=== PATIENT | male | born 1950 | race Caucasian/White ===

== ENCOUNTER → 2019-10-11 10:48 | Outpatient (CLI) | payer BC, SELFPAY ==
[2019-10-11 11:00] LABS: Adenovirus F 40/41, stool Not Detected (NotDetected); Astrovirus Not Detected (NotDetected); Clostridium Difficile A/B, PCR Not Detected (NotDetected); Cryptosporidium Not Detected (NotDetected); Cyclospora Cayetanesis Not Detected (NotDetected); Entamoeba histolytica Not Detected (NotDetected); Enteroaggregative E coli Not Detected (NotDetected); Enteropathogenic E coli Not Detected (NotDetected); Enterotoxigenic E coli Not Detected (NotDetected); Giardia lamblia Not Detected (NotDetected); Norovirus Not Detected (NotDetected); Plesimonas Shigalloides, PCR Not Detected (NotDetected); Rotavirus A Not Detected (NotDetected); Salmonella, PCR Not Detected (NotDetected); Sapovirus Not Detected (NotDetected); Shiga-like toxin E coli Not Detected (NotDetected); Shigella Enterovasive E coli Not Detected (NotDetected); Vibrio Cholerae Not Detected (NotDetected); Vibrio, PCR Not Detected (NotDetected); Yersinia Entercolitica, PCR Not Detected (NotDetected)
[2019-10-11 17:03] LABS: Campylobacter Detected (NotDetected)
[2019-10-12 13:28] LABS: Covid-19 Nasal PCR Sendout Lex Not Detected
== END ==
PROVIDERS: Visit Provider Nurse Practitioner Family
DX: Z03.818 Encounter for observation for suspected exposure to other biological agents ruled out (principal); R19.7 Diarrhea, unspecified; A04.5 Campylobacter enteritis
CPT/HCPCS: 87507; U0004

== ENCOUNTER 2022-11-12 14:02 | Emergency (ER) | payer MEDICARE, SELFPAY ==
[2022-11-12] VITALS (7 sets, daily range): BP systolic 125–150; BP diastolic 79–89; PULSE 94–117; RESP 17–20; TEMP 36.7–36.8; O2SAT 97–98; BMI 29.5
--- NOTE | 2022-11-12 14:23 | PC.NURSE ---
DR AVENDANO AT BEDSIDE
--- NOTE | 2022-11-12 14:32 | CT_ITS ---
PROCEDURE INFORMATION: Exam: CT Abdomen And Pelvis With Contrast Exam date and time: 11/12/2022 3:49 PM Age: 72 years old Clinical indication: Other: Hematuria; Additional info: Painless hematuria, concern for malignancy TECHNIQUE: Imaging protocol: Computed tomography of the abdomen and pelvis with contrast. Radiation optimization: All CT scans at this facility use at least one of these dose optimization techniques: automated exposure control; mA and/or kV adjustment per patient size (includes targeted exams where dose is matched to clinical indication); or iterative reconstruction. Contrast material: ISOVUE; Contrast volume: 75 ml; Contrast route: IV; REPORTING DATA: Count of CT and Cardiac NM exams in prior 12 months: This patient has received 0 known CTs and 0 known cardiac nuclear medicine studies in the 12 months prior to the current study. COMPARISON: No relevant prior studies available. FINDINGS: Lungs: Minor atelectatic changes left lung base otherwise lung zendejas are clear. Liver: Diffuse fatty infiltration of the liver which is otherwise unremarkable. Gallbladder and bile ducts: Normal. No calcified stones. No ductal dilation. Pancreas: Normal. No ductal dilation. Spleen: Normal. No splenomegaly. Adrenal glands: Normal. No mass. Kidneys and ureters: Kidneys are mildly malrotated but otherwise unremarkable. No calculi or obstructive hydronephrosis. Stomach and bowel: Scattered diverticuli large bowel without evidence of acute diverticulitis. Appendix: No evidence of appendicitis. Intraperitoneal space: Unremarkable. No free air. No significant fluid collection. Vasculature: Unremarkable. No abdominal aortic aneurysm. Lymph nodes: Unremarkable. No enlarged lymph nodes. Urinary bladder: Mild diffuse bladder wall thickening with small bladder diverticulum that may be secondary to chronic bladder outlet obstruction syndrome. Reproductive: Prostate gland is mildly enlarged. Bones/joints: Mild degenerative changes lumbar spine. No acute bony abnormalities. Soft tissues: Unremarkable. IMPRESSION: 1. Mild prostate enlargement with mild accompanying diffuse bladder wall thickening that may be secondary to chronic bladder outlet obstruction. 2. 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 3. Diffuse fatty infiltration of liver.
--- NOTE | 2022-11-12 14:33 | HMH.EDGENADL ---
Discharge Plan Disposition Patient Disposition: Home, Self-Care Condition: Good Prescriptions Prescriptions: New levofloxacin 750 mg tablet 750 mg PO DAILY 7 Days Qty: 7 0RF No Action lisinopril 10 mg tablet 10 mg PO DAILY Referrals Follow up/Referrals: Ivelisse Nevarez MD [Primary Care Provider] - See instructions Activity Restrictions/Add. Instructions Additional Instructions/Restrictions: You were evaluated in the emergency department today. Please vegetable picker your prescription for antibiotics and take the full course as prescribed. Follow-up with your primary care provider over the next 3 days for reassessment. It is important that she get close follow-up with urology. They can further evaluate your prostate and bladder issues. Return to the emergency department for any new or worsening symptoms, such as fever, inability to tolerate oral intake without vomiting, inability to urinate, increasing pain, or other concerns. Clinical Impressions Clinical Impression: Painless hematuria, Cystitis, Enlarged prostate Instructions Patient Instructions: DI for Urinary Tract Infection (UTI) Discharge ED Provider: Romy Borges General Adult HPI <Tommie Melara MD - Last Filed: 11/12/22 14:36> General Chief complaint: Urogenital-Male Stated complaint: passing blood in urine Time Seen by Provider: 11/12/22 14:22 Mode of Arrival: Ambulatory Source of Information: Patient Limitations: No Limitations Description of Symptoms (Recalled from ER Triage Doc. by RN): PT C/O BLOOD IN URINE THAT BEGAN LAST NIGHT. REPORTS FREQUENCY, NO PAIN, FEVER OR CHILLS History of Present Illness HPI narrative: 72-year-old here with painless hematuria. States he is only on aspirin not on any anticoagulants or other antiplatelet agents. Denies any significant pain fevers chills or any other symptoms. Had something similar in the past where he did have some pain associated with it and was told he had a urinary tract infection and improved. Patient denies any history of any cancer. He is only on lisinopril for hypertension. States earlier today he had some difficult time passing his urine but once a clot passed he has had no difficulty since around noon today he still able to urinate at this point. No significant suprapubic abdominal distention or tenderness at the moment from historical standpoint. Related Data Home Medications Medication Instructions Recorded Confirmed lisinopril 10 mg tablet 10 mg PO DAILY High Blood Pressure 11/12/22 11/12/22 Previous Rx's Medication Instructions Recorded levofloxacin 750 mg tablet 750 mg PO DAILY 7 days #7 tabs 11/12/22 Allergies Allergy/AdvReac Type Severity Reaction Status Date / Time No Known Allergies Allergy Verified 11/12/22 14:12 PFS <Tommie Melara MD - Last Filed: 11/12/22 14:36> PFS Disclaimer: The information contained in this section may have been updated after the patient was seen, as this information can be updated by other users. Medical History (Updated 11/12/22 @ 17:13 by Romy Borges DO) H/O myasthenia gravis Hypertension Surgical History Hx of tonsillectomy Family History Other No significant family history Social History Smoking Status: Former smoker alcohol intake: never current occupational status: employed Travel in the last 8 weeks: None <Tommie Melara MD - Last Filed: 11/12/22 14:36> ROS Obtained: Yes All systems reviewed & no additional complaints except as documented Physical Exam <Tommie Melara MD - Last Filed: 11/12/22 14:36> General General appearance: alert and in no apparent distress Respiratory Respiratory exam: Present normal lung sounds bilaterally; Absent respiratory distress Cardiovascular Cardiovascular exam: Present regular rate; Absent tac
[2022-11-12 15:00] LABS: Microscopic, Urine URINE MICROSCOPIC (MICROSCOPIC)
[2022-11-12 15:04] LABS: Appearance,Urine CLOUDY (Clear); Blood, Urine 3+ (Negative); Color,Urine RED (Yellow); Glucose,Urine (UA) Negative (Negative); Ketones,Urine TRACE (Negative); Leukocyte Esterase,Urine 2+ (Negative); Nitrate,Urine POSITIVE (Negative); PH,Urine 6.5 (5.0-8.5); Protein,Urine 3+ (Negative); Specific Gravity, Urine 1.025 (1.005-1.030)
[2022-11-12 15:07] LABS: Bilirubin,Urine 3+ (Negative)
[2022-11-12 15:20] LABS: Bacteria,Urine 2+ /lpf; WBC,Urine TNTC #/hpf (0-3)
[2022-11-12 15:25] LABS: Chloride 101 mmol/L (98-107); Potassium 4.7 mmoL/L (3.5-5.1); Sodium 140 mmol/L (136-145)
[2022-11-12 15:28] LABS: Alanine Aminotransferase 34 U/L (12-78); Albumin Level 4.6 g/dl (3.5-5.0); Albumin/Globulin Ratio 1.4 (1.1-1.8); Alkaline Phosphatase 133 U/L (38-126); Anion Gap 15.7 mEq/L (5-15); Aspartate Amino Transferase 38 U/L (17-59); Basophils % 0.3 % (0.1-2.0); Bilirubin,Total 1.2 mg/dl (0.2-1.3); Blood Urea Nitrogen 23 mg/dl (9-20); Carbon Dioxide 28 mmol/L (22.0-30.0); Creatinine Clearance Estimated 91 mL/min (50-200); Eosinophils # 0.2 K/mm3 (0.0-0.4); Eosinophils % 1.2 % (0.1-12.0); Estimated Glomerular Filt Rate 73 ml/min (>60); GFR (African American) 89 ML/MIN (>60); Globulin 3.3 g/dL (1.3-3.2); Hematocrit 44.4 % (42.0-52.0); Hemoglobin 14.3 g/dL (14.1-18.0); Lymphocytes # 1.2 K/mm3 (0.7-4.5); Lymphocytes % 6.8 % (10-50); Mean Corpuscular HGB Conc 32.3 g/dL (31.8-35.4); Mean Corpuscular Hemoglobin 30.6 pg (27.0-31.2); Mean Corpuscular Volume 94.7 fl (80-94); Mean Platelet Volume 8.2 fl (7.4-10.4); Monocytes # 0.9 K/mm3 (0.1-1.0); Monocytes % 5.1 % (1.7-9.3); Neutrophils # 15.3 K/mm3 (1.8-7.8); Neutrophils % 86.6 % (37.0-80.0); Platelet Count 340 K/mm3 (142-424); Red Blood Count 4.69 M/mm3 (4.60-6.20); Red Cell Distribution Width 13.7 % (11.5-17.5); Total Protein,Serum 7.9 g/dl (6.3-8.2); White Blood Count 17.6 K/mm3 (4.8-10.8)
[2022-11-12 15:29] LABS: Glucose 101 mg/dl (74-100)
[2022-11-12 15:30] LABS: MANUAL DIFFERENTIAL MANUAL DIFFERENTIAL (MANUAL DIFF)
[2022-11-12 15:35] LABS: Activated Partial Thrombo Time 26.4 seconds (22.8-30.6); INR 0.97 (0.9-1.1); Prothrombin Time 10.5 seconds (10.1-12.5)
[2022-11-12 16:11] LABS: Lymphocytes % 10 % (10-50); Monocytes % 4 % (2-9); Neutrophils % 86 % (42-76); Platelet Estimate Normal; RBC Morphology Normal; Total Cells Counted 100
--- NOTE | 2022-11-12 16:32 | PC.NURSE ---
ROUNDED ON PT, UPDATED AT THIS TIME
== END 2022-11-12 17:26 | disposition home or self-care (01) ==
PROVIDERS: Student in an Organized Health Care Education/Training Program; Emergency Provider Emergency Medicine; PCP Family Medicine
DX: N30.01 Acute cystitis with hematuria (principal); N40.1 Benign prostatic hyperplasia with lower urinary tract symptoms; G70.00 Myasthenia gravis without (acute) exacerbation; I10 Essential (primary) hypertension; Z79.82 Long term (current) use of aspirin
CPT/HCPCS: 74177; 80053; 81001; 85007; 85025; 85610; 85730; 87086; 87088; 87186; 99285; Q9967

== ENCOUNTER 2022-11-27 08:05 | Emergency (ER) | payer MEDICARE, SELFPAY ==
[2022-11-27] VITALS (15 sets, daily range): BP systolic 114–169; BP diastolic 66–93; PULSE 76–115; RESP 18–19; TEMP 36.4–36.7; O2SAT 92–98; BMI 27.1
--- NOTE | 2022-11-27 08:10 | PC.NURSE ---
dr frederick at bedside
--- NOTE | 2022-11-27 08:13 | PC.NURSE ---
Dr. Olivarez at BS for pt eval
--- NOTE | 2022-11-27 08:21 | US_ITS ---
PROCEDURE INFORMATION: Exam: US Scrotum Exam date and time: 11/27/2022 8:50 AM Age: 72 years old Clinical indication: Scrotum pain; Additional info: Concern L torsion. HX of recent UTI TECHNIQUE: Imaging protocol: Real-time ultrasound of the scrotum and contents with color Doppler and image documentation. COMPARISON: CT ABDOMEN PELVIS W CON 11/12/2022 3:49 PM FINDINGS: Right testicle: Normal. No mass. No torsion. Normal vascular flow. Measures 4.0 x 2.3 cm Left testicle: Normal. No mass. No torsion. Normal vascular flow. Measures 4.9 x 3.4 x 3.3 cm. Epididymides: Increased vascularity of both epididymides compatible with epididymitis. Scrotum/soft tissues: Diffusely edematous scrotum. Small hydroceles bilaterally. Right-sided varicocele. IMPRESSION: 1. Normal testicles. 2. Epididymitis bilaterally. 3. Right-sided varicocele. 4. Small hydroceles bilaterally. 5. Diffusely edematous scrotum.
--- NOTE | 2022-11-27 08:21 | PC.NURSE ---
notified rad staff of u/s order for r/t torsion
--- NOTE | 2022-11-27 08:23 | HMH.EDGENADL ---
Discharge Plan Disposition Patient Disposition: Admitted Chief Complaint: Urogenital-Male Prescriptions Prescriptions: No Action lisinopril 10 mg tablet 10 mg PO DAILY Clinical Impressions Clinical Impression: Sepsis, Bilateral epididymitis, Enterococcus UTI Discharge ED Provider: Hakeem Olivarez General Adult HPI General Chief complaint: Urogenital-Male Stated complaint: male area swollen Time Seen by Provider: 11/27/22 08:11 Mode of Arrival: Ambulatory Source of Information: Patient Limitations: No Limitations Description of Symptoms (Recalled from ER Triage Doc. by RN): PT C/O BILATERAL TESTICLE SWELLING THAT STARED ON MONDAY. PT RECENTLY TREATED FOR UTI WITH ABX History of Present Illness HPI narrative: Patient is a 72-year-old male with no pertinent chronic past medical history who presents to the emergency department for evaluation of testicular pain. Onset was acute, occurring Monday, waking him from sleep, left-sided, testicular radiating into his inguinal area. Symptoms have worsened causing her to present here for continued evaluation due to severe pain. Per patient he was recently diagnosed with prostatitis a couple weeks ago with blood in his urine and was initially given a course of Levaquin which was switched to Bactrim due to his history of myasthenia. Patient did not complete full course of Bactrim. It was switched to nitrofurantoin for which urinary symptoms cleared completely prior to this episode. Last bowel movement yesterday, normal. Patient has had episodes of vomiting and nausea. No other acute complaints at this time. Per chart review patient presented to the ER in 11/12 and underwent work-up where CT found mild prostate enlargement with diffuse bladder wall thickening, urinalysis was consistent with UTI, urine culture has since grown Enterococcus that was pansensitive. Related Data Home Medications Medication Instructions Recorded Confirmed lisinopril 10 mg tablet 10 mg PO DAILY High Blood Pressure 11/12/22 11/27/22 Allergies Allergy/AdvReac Type Severity Reaction Status Date / Time No Known Allergies Allergy Verified 11/12/22 14:12 [facility] Disclaimer: The information contained in this section may have been updated after the patient was seen, as this information can be updated by other users. Medical History (Updated 11/27/22 @ 10:39 by Hakeem Olivarez MD) H/O myasthenia gravis Hypertension Surgical History Hx of tonsillectomy Family History Other No significant family history Social History Smoking Status: Former smoker alcohol intake: never current occupational status: employed Travel in the last 8 weeks: None ROS Obtained: Yes Systems reviewed as appropriate & no additional complaints except as documented Physical Exam General General appearance: alert and in distress Head Head exam: atraumatic and normocephalic Eye Eye exam: Present PERRL and EOMI ENT ENT exam: Present mucous membranes moist Neck Neck exam: Present normal inspection Chest Chest inspection: Present normal inspection and symmetric chest wall rise Respiratory Respiratory exam: Present normal lung sounds bilaterally; Absent respiratory distress Cardiovascular Cardiovascular exam: Present normal rhythm, tachycardia and other (Capillary refill less than 2 seconds) Abdominal Exam Abdominal exam: Present soft and tenderness (Low left inguinal tenderness, no tenderness in any of the abdominal quadrants); Absent guarding or rigidity exam: Present other (Erythematous scrotum, normal right testicle that is nontender to palpation, enlarged high-riding tense significantly tender left testicle. No crepitus.) Extremities Exam Extremities exam: Present normal inspection Neurological Exam Neurological exam: Presen
[2022-11-27 08:36] LABS: Microscopic, Urine URINE MICROSCOPIC (MICROSCOPIC)
[2022-11-27 08:38] LABS: Appearance,Urine CLEAR (Clear); Bilirubin,Urine Negative (Negative); Blood, Urine 2+ (Negative); Color,Urine YELLOW (Yellow); Glucose,Urine (UA) Negative (Negative); Ketones,Urine TRACE (Negative); Leukocyte Esterase,Urine 2+ (Negative); Nitrate,Urine POSITIVE (Negative); Protein,Urine 1+ (Negative); Specific Gravity, Urine 1.025 (1.005-1.030); Urobilinogen,Urine 0.2 EU/dl (0.2)
[2022-11-27 08:40] LABS: Basophils % 0.1 % (0.1-2.0); Eosinophils # 0.1 K/mm3 (0.0-0.4); Eosinophils % 0.7 % (0.1-12.0); Hematocrit 40.4 % (42.0-52.0); Hemoglobin 13.1 g/dL (14.1-18.0); Lymphocytes # 0.3 K/mm3 (0.7-4.5); Lymphocytes % 1.7 % (10-50); Mean Corpuscular HGB Conc 32.3 g/dL (31.8-35.4); Mean Corpuscular Hemoglobin 30.1 pg (27.0-31.2); Mean Corpuscular Volume 93.1 fl (80-94); Mean Platelet Volume 7.9 fl (7.4-10.4); Monocytes # 0.7 K/mm3 (0.1-1.0); Monocytes % 3.6 % (1.7-9.3); Neutrophils # 17.3 K/mm3 (1.8-7.8); Neutrophils % 93.9 % (37.0-80.0); Platelet Count 270 K/mm3 (142-424); Red Blood Count 4.34 M/mm3 (4.60-6.20); Red Cell Distribution Width 13.7 % (11.5-17.5); White Blood Count 18.4 K/mm3 (4.8-10.8)
[2022-11-27 08:44] LABS: MANUAL DIFFERENTIAL MANUAL DIFFERENTIAL (MANUAL DIFF)
--- NOTE | 2022-11-27 08:45 | ECG_ITS ---
APPROVED REPORT Exam: Resting ECG HR:101 bpm ECG Measurements Heart Rate 101 AXES WI 152 P 65 QRSd 102 QRS -4 QT 339 T 53 QTc 397 Conclusion SINUS TACHYCARDIA ABNORMAL RHYTHM ECG UNCONFIRMED REPORT Electronically signed by : Tommy Mcmahan MD 11/29/2022 17:19:48
--- NOTE | 2022-11-27 08:49 | PC.NURSE ---
PT TO US AT THIS TIME
--- NOTE | 2022-11-27 08:49 | PC.NURSE ---
Pt gone to RAD for u/s via wheelchair
[2022-11-27 08:50] LABS: Alanine Aminotransferase 31 U/L (12-78); Albumin Level 3.9 g/dl (3.5-5.0); Albumin/Globulin Ratio 1.2 (1.1-1.8); Alkaline Phosphatase 123 U/L (38-126); Anion Gap 14.1 mEq/L (5-15); Aspartate Amino Transferase 33 U/L (17-59); Bilirubin,Total 1.8 mg/dl (0.2-1.3); Blood Urea Nitrogen 23 mg/dl (9-20); Carbon Dioxide 24 mmol/L (22.0-30.0); Chloride 101 mmol/L (98-107); Creatinine Clearance Estimated 76 mL/min (50-200); Estimated Glomerular Filt Rate 66 ml/min (>60); GFR (African American) 80 ML/MIN (>60); Globulin 3.3 g/dL (1.3-3.2); Glucose 140 mg/dl (74-100); Potassium 4.1 mmoL/L (3.5-5.1); Sodium 135 mmol/L (136-145); Total Protein,Serum 7.2 g/dl (6.3-8.2)
[2022-11-27 08:53] LABS: Bacteria,Urine 3+ /lpf; Squamous Epithelial Cell,Urine Occasional #/hpf (0-5); WBC,Urine 20-50 #/hpf (0-3)
[2022-11-27 08:55] LABS: C-Reactive Protein 113.5 mg/L (0-4); Lymphocytes % 4 % (10-50); Monocytes % 1 % (2-9); Neutrophils % 95 % (42-76); Platelet Estimate Normal; RBC Morphology Normal; Total Cells Counted 100
--- NOTE | 2022-11-27 09:18 | PC.NURSE ---
Pt returned from RAD
--- NOTE | 2022-11-27 09:21 | CT_ITS ---
PROCEDURE INFORMATION: Exam: CT Abdomen And Pelvis With Contrast Exam date and time: 11/27/2022 9:43 AM Age: 72 years old Clinical indication: Fever and mass, lump, or swelling; Other: Scrotum; Patient HX: Recurring UTI, fever, pain , swelling; Additional info: Reported severe scrotal infection US, low abd pain TECHNIQUE: Imaging protocol: Computed tomography of the abdomen and pelvis with contrast. Radiation optimization: All CT scans at this facility use at least one of these dose optimization techniques: automated exposure control; mA and/or kV adjustment per patient size (includes targeted exams where dose is matched to clinical indication); or iterative reconstruction. Contrast material: ISOVUE; Contrast volume: 75 ml; Contrast route: IV; REPORTING DATA: Count of CT and Cardiac NM exams in prior 12 months: This patient has received [address] and 0 known cardiac nuclear medicine studies in the 12 months prior to the current study. COMPARISON: CT ABDOMEN PELVIS W CON 11/12/2022 3:49 PM FINDINGS: Diaphragm: Small hiatal hernia. Liver: Fatty infiltration of the liver. Gallbladder and bile ducts: Normal. No calcified stones. No ductal dilation. Pancreas: Normal. No ductal dilation. Spleen: Normal. No splenomegaly. Adrenal glands: Normal. No mass. Kidneys and ureters: Stable perinephric stranding, may relate to medical renal disease. No findings to suggest pyelonephritis. No hydronephrosis. Stomach and bowel: Colonic diverticulosis without CT evidence of diverticulitis. Appendix: No evidence of appendicitis. Intraperitoneal space: Unremarkable. No free air. No significant fluid collection. Vasculature: Unremarkable. No abdominal aortic aneurysm. Lymph nodes: Unremarkable. No enlarged lymph nodes. Urinary bladder: Stable mild wall thickening within the posterior bladder. Multiple small bladder diverticula evident. Reproductive: Diffuse scrotal edema as seen on earlier ultrasound. Stable mild enlargement of the prostate gland. Bones/joints: Unremarkable. No acute fracture. Soft tissues: No CT evidence of necrotizing fasciitis. IMPRESSION: 1. Diffuse scrotal edema as seen on earlier ultrasound. 2. No CT evidence of necrotizing fasciitis. 3. Stable mild wall thickening within the posterior bladder. Multiple small bladder diverticula evident. 4. Stable perinephric stranding, may relate to medical renal disease. No findings to suggest pyelonephritis.
--- NOTE | 2022-11-27 09:21 | PC.NURSE ---
PT RETURNED FROM US
--- NOTE | 2022-11-27 09:27 | PC.NURSE ---
Dr. Olivarez at to speak with pt about POC
[2022-11-27 09:29] LABS: Erythrocyte Sedimentation Rate 16 mm/hr (0-20)
--- NOTE | 2022-11-27 09:29 | PC.NURSE ---
PT TO CT AT THIS TIME
--- NOTE | 2022-11-27 09:47 | PC.NURSE ---
Pt returned from RAD
--- NOTE | 2022-11-27 10:20 | PC.NURSE ---
ROUNDED ON PT, AT BEDSIDE. DENIES NEEDS AT THIS TIME. CALL LIGHT WITHIN REACH
--- NOTE | 2022-11-27 10:23 | PC.NURSE ---
DR NOWAK SPEAKING WITH DR JAY FOR ADMISSION
--- NOTE | 2022-11-27 10:35 | PC.NURSE ---
notified [facility] supervisor of admission
--- NOTE | 2022-11-27 11:04 | PC.NURSE ---
MULTIPLE ATTEMPTS TO PLACE F/C. UNABLE TO PLACE 16F, 10F AND 5F CATHETERS.
--- NOTE | 2022-11-27 11:10 | PC.NURSE ---
pt sitting up on side of the bed attempting to use the urinal
--- NOTE | 2022-11-27 11:16 | PC.NURSE ---
APPROX 100ML VOID GREATER THAN 350ML POST-VOID RESIDUAL
--- NOTE | 2022-11-27 11:18 | PC.NURSE ---
contacting [facility] per ER request
--- NOTE | 2022-11-27 11:23 | PC.NURSE ---
transfer center at [facility] will contact Dr. Green from urology and will call us back to speaking with REILLY PINEDA
--- NOTE | 2022-11-27 11:32 | PC.NURSE ---
DR NOWAK AT BEDSIDE TO UPDATE PT
--- NOTE | 2022-11-27 11:33 | PC.NURSE ---
DR. NOWAK SPEAKING WITH DR. JOHNSON FOR UROLOGY
--- NOTE | 2022-11-27 11:35 | PC.NURSE ---
call and updated pts about possible transfer.
--- NOTE | 2022-11-27 11:46 | PC.NURSE ---
DR NOWAK SPEAKING WITH [facility]
--- NOTE | 2022-11-27 11:49 | PC.NURSE ---
PT ACCEPTED BY DR. LEI
--- NOTE | 2022-11-27 12:14 | PC.NURSE ---
PT UPDATED AT THIS TIME, NO NEEDS AT THIS TIME. CALL LIGHT WITHIN REACH
--- NOTE | 2022-11-27 12:15 | PC.NURSE ---
per [facility] pt assigned to unit [facility] obtained number for report
--- NOTE | 2022-11-27 12:59 | PC.NURSE ---
Pt updated on expected wait times for transfer. No other needs voiced at this time. Call light within reach.
--- NOTE | 2022-11-27 13:42 | PC.NURSE ---
Rounded on pt. Pt provided with drink. No other needs voiced.
--- NOTE | 2022-11-27 14:45 | PC.NURSE ---
PT UPDATED AT THIS TIME. NO NEEDS VOICED
--- NOTE | 2022-11-27 15:51 | PC.NURSE ---
[facility] here for tranport, report given to Carleen Betancourt
--- NOTE | 2022-11-28 23:58 | PC.NURSE ---
Addendum entered by Marsha Lerner RN 11/29/22 00:16: Nidia from lab contacted [place] where the pt was transferred. Original Note: I gave Dr. Melara a positive wound culture result. Result was a positive aerobic gram positive cocci clusters.
--- NOTE | 2022-11-29 08:52 | PC.NURSE ---
Addendum entered by Kathryn Singh RN 11/29/22 09:17: urine culture result faxed to [facility] at the below number also. Dr. Olivarez also notified of urine culture results Original Note: Contacted [facility] spoke with Arabella Vital RN r/t positive blood culture results. Notified her of results, also obtained fax number to fax culture result for to her. )
[2022-11-30 09:55] LABS: Neisseria gonorrhoeae, NAA Negative (Negative)
== END 2022-11-27 16:01 | disposition admitted as inpatient to this hospital (09) ==
LOC: ER 08:42 → 2ND 10:39 → ER 13:44
PROVIDERS: Emergency Provider Emergency Medicine; PCP Family Medicine
DX: A41.9 Sepsis, unspecified organism (principal); N45.1 Epididymitis; N39.0 Urinary tract infection, site not specified; B95.2 Enterococcus as the cause of diseases classified elsewhere; G70.00 Myasthenia gravis without (acute) exacerbation; I10 Essential (primary) hypertension; Z87.891 Personal history of nicotine dependence
CPT/HCPCS: 74177; 76870; 80053; 81001; 85007; 85025; 85651; 86140; 87040; 87077; 87086; 87088; 87186; 87491; 87591; 93005; 96361; 96365; 96375; 96376; 99285; J0131; J2405; Q9967

== ENCOUNTER 2024-12-17 11:02 | Outpatient (CLI) | payer MEDICARE, SELFPAY ==
--- OUTSIDE RECORDS SUMMARY | 2024-12-17 11:07 | XMS_ITS | Referral Summary ---
Author Organization [employer] ([place], [place], [place], [place]) Address [address] [place] [address] Care Team Providers Care Veneer Glue Spreader Name Role Phone Yonatan Nevarez MD Primary Care Provider [phone] Allergies No known active allergies Medications lisinopriL (PRINIVIL,ZESTRI L) 10 MG tablet Take 1 tablet (10 mg total) by mouth daily. Active aspirin 81 MG EC tablet Take 1 tablet (81 mg total) by mouth every other day. Active Active Problems Problem Noted Date Diagnosed Date Obstructive uropathy 11/27/2022 HTN (hypertension) 07/20/2016 Myasthenia gravis 08/25/2015 Overview (11/28/2022): Last Assessment & Plan: MG ADL 0 Stop Cellcept Mestinon 60 mg q8 prn Social History Tobacco Use Types Packs/Day Years Used Date Smoking Tobacco: Never Smokeless Tobacco: Never Tobacco Cessation:Counseling Given: Not Answered Alcohol Use Standard Drinks/Week Comments Not Currently 0 (1 standard drink = 0.6 oz pur e alcohol) PRAPARE - Transportation Answer Date Re corded In the past 12 months, has l ack of transportation kept you from medical appointments or from getting medications? No 11/27/2022 Lack of Transportation (Non-Medical) Not on file 11/27/2022 Food Insecurity Answer Date Recorded Food run out past 12 months Not on file 03/20 Food did not last past 12 months Not on file 03/31/2023 Employment Answer Date Recorded Help finding and keeping a job Not on file 0 03/31/2023 Family and Community Support Answer Usman e Recorded Help with Day to Day Activities Not on file 03/31/2023 Feeling Lonely or Isolated Not on file 03/31 Educational Attainment Answer Date Mat rded Speak language other than Stateless at home Not on file 03/31/2023 Want help with school or training Not on file 03/31/2023 Substance Use Answer Date Recorded Used prescription meds for non-medical reasons N ot on file 03/31/2023 Used illegal drugs past 12 months Not on file 03/31/2023 Sex and Gender Information Value Date Recorded Sex Assigned at Not on file Legal Sex Male 3:15 PM CDT Gender Identity Not on file Sexual Orientation Not on file Last Filed Vital Signs Vital Sign Reading Time Taken Comments Blood Pressure 111/65 12/04/2022 8:25 AM EDT Pulse 86 12/04/2022 8:57 AM EDT Temperature 36.2 C (97.2 F) 12/04/2022 6:05 AM EDT Respiratory Rate 16 12/04/2022 6:05 AM EDT Oxygen Saturation 99% 12/04/2022 8:57 AM EDT Inhaled Oxygen Concentration - - Weight 95.3 kg (210 lb) 11/27/2022 5:11 PM EDT Height 177.8 cm (5' 10 ) 11/27/2022 5:11 PM EDT Body Mass Index 30.13 11/27/2022 5:11 PM EDT Plan of Treatment Not on file Insurance [facility] MED[facility] PPO Advance Directives For more information, please contact: [phone] * Full Code (Latest Code Status on File) Date Activated Date Inactivated Comments 11/27/2022 5:03 PM 12/04/2022 12:30 PM Care Teams Veneer Glue Spreader Relationship Specialty Start Date End Date Yonatan Nevarez MD [address] [place] [address] PCP - General Family Medicine 11/27/22
--- OUTSIDE RECORDS SUMMARY | 2024-12-17 11:07 | XMS_ITS | Clinical Summary ---
Author Organization Healthcare Address [address] [place] [address] Care Team Providers Care Dental Technician Name Role Phone Yonatan Nevarez MD Primary Care Provider [phone] Social History Tobacco Use Types Packs/Day Years Used Date Smoking Tobacco: Never Alcohol Use Standard Drinks/Week Comments No 0 (1 standard drink = 0.6 oz pur e alcohol) Sex and Gender Information Value Date Recorded Sex Assigned at Not on file Legal Sex Male 8:21 PM EDT Gender Identity Not on file Sexual Orientation Not on file Last Filed Vital Signs Vital Sign Reading Time Taken Comments Blood Pressure - - Pulse - - Temperature - - Respiratory Rate - - Oxygen Saturation - - Inhaled Oxygen Concentration - - Weight 95.3 kg (210 lb 0.2 oz) 07/10/2013 1:08 P M EDT Height 180.3 cm (5' 11 ) 07/10/2013 1:08 PM EDT Body Mass Index 29.29 07/10/2013 1:08 PM EDT Plan of Treatment Not on file Care Teams Dental Technician Relationship Specialty Start Date End Date Yoantan Nevarez MD [address] [place] [address] [address] [place] [address] PCP - General 07/31/20
--- OUTSIDE RECORDS SUMMARY | 2024-12-17 11:07 | XMS_ITS | Clinical Summary ---
Author Organization [facility] Address [address] [place] [address] Care Team Providers Care Photoradio Operator Name Role Phone Yonatan Nevarez MD Primary Care Provider [phone] Allergies No known active allergies Medications Glucosamine-Robert droitin 500-250 MG capsule Take by mouth. 01/08/2014 Active lisinopril (PRINIVIL,ZESTRI L) 10 MG tablet Take by mouth. 01/08/2014 Active pyridostigmine (MESTINON) 60 MG tablet Take 1 PO TID prn 360 tablet 1 01/18/2021 Active Active Problems Problem Noted Date Diagnosed Date Paresthesias 10/26/2017 HTN (hypertension) 07/20/2016 Myasthenia gravis 08/25/2015 Assessment & Plan (01/18/2021 8:26 AM EDT): MG ADL 0 Stop Cellcept Mestinon 60 mg q8 prn Neuropathic pain syndrome (non-herpetic) 016 Resolved Problems Problem Noted Date Diagnosed Date Resolved Date Neurological disorder 07/20/20162020 Social History Tobacco Use Types Packs/Day Years Used Date Smoking Tobacco: Former Cigarettes Q uit: 03/20/1983 Smokeless Tobacco: Never Tobacco Cessation:Counseling Given: No Alcohol Use Standard Drinks/Week Comments No 0 (1 standard drink = 0.6 oz pur e alcohol) Abuse Screen Answer Date Recorded Unsafe at Home or Work/School Not on file Feels Threatened by Someone? Not on file 01/2023 Does Anyone Keep You from Co ntacting Others or Doint Things Outside the Home? Not on file 12/28/2022 Physical Sign of Abuse Present Not on file 1 Housing Stability Answer Date Recorded Current Living Arrangements Not on file 12/18 Potentially Unsafe Housing Conditions Not on scot e 12/28/2022 Family and Community Support Answer Usman e Recorded Help with Day-to-Day Activities Not on file 12/28/2022 Lonely or Isolated Not on file 12/28/2022 Employment Answer Date Recorded Do you want help finding or keeping work or a german b? Not on file 12/28/2022 Disabilities Answer Date Recorded Concentrating, Remembering, or Making Decisions Difficulty Not on file 12/28/2022 Doing Errands Independently Difficulty Not on fi le 12/28/2022 Education Answer Date Recorded Help with school or training? Not on file Preferred Language Not on file 12/28/2022 Sex and Gender Information Value Date Recorded Sex Assigned at Not on file Legal Sex Male 12:18 PM EDT Gender Identity Not on file Sexual Orientation Not on file Last Filed Vital Signs Vital Sign Reading Time Taken Comments Blood Pressure 122/80 01/18/2021 8:10 AM EDT Pulse 74 01/18/2021 8:10 AM EDT Temperature 36.3 C (97.3 F) 01/18/2021 8:10 AM EDT Respiratory Rate - - Oxygen Saturation 97% 01/18/2021 8:10 AM EDT Inhaled Oxygen Concentration - - Weight 94.8 kg (209 lb) 01/18/2021 8:10 AM EDT Height 180.3 cm (5' 11 ) 01/18/2021 8:10 AM EDT Body Mass Index 29.15 01/18/2021 8:10 AM EDT Plan of Treatment Health Maintenance Due Date Last Done Comments TDAP/TD VACCINES (1 - Tdap) 1969 COLOGUARD 07/25/1995 COLON CANCER SCREENING 5 YEAR SIGMOIDOSCOPY 07/25/1995 COLONOSCOPY 07/25/1995 COLORECTAL CANCER SCREENING 07/25/1995 CT COLONOGRAPHY 07/25/1995 FECAL OCCULT BLOOD TEST 07/25/1995 FIT Testing (1 year) 07/25/1995 Pneumococcal Vaccine 50+ (1 of 1 - PCV) 2000 ZOSTER VACCINE (1 of 2) 2000 AAA SCREEN ONCE 07/25/2015 ANNUAL PHYSICAL 07/20/2016 HEPATITIS C SCREENING 07/20/2016 INFLUENZA VACCINE 10/18/2024 COVID-19 Vaccine ( season) 11/18/202412/2020 Insurance [facility] MEDICARE ADVANTAGE Care Teams Photoradio Operator Relationship Specialty Start Date End Date Yonatan Nevarez MD [address] [place] [address] PCP - General 03/17/15
--- OUTSIDE RECORDS SUMMARY | 2024-12-17 11:07 | XMS_ITS | Clinical Summary ---
Author Organization [email or web address] ([place], [place], [place], [place]) Address [address] [place] [address] Care Team Providers Care Hse Manager Name Role Phone Yonatan Nevarez MD Primary Care Provider [phone] Allergies No known active allergies Medications lisinopriL [...] 11/27/2022 5:11 PM EDT Plan of Treatment Health Maintenance Due Date Last Done Comments CT Colonography 1950 Colonoscopy 1950 Colorectal Cancer Screening 1950 FOBT/FIT 1950 Fit-DNA (Cologuard) 1950 Sigmoidoscopy 1950 Depression Screening (12+) 1962 Hepatitis C Screening 1968 DTAP/TDAP/TD VACCINES (1 - Tdap) 1969 Pneumococcal 50+ years (1 of 1 - PCV) 2000 Shingles Vaccine (Zoster) (1 of 2) 2000 Medicare Initial AWV [id number] 03/21/2023 Tobacco Cessation Counseling and Screening (12+) 11/28/2023 11/27/2022 Falls Risk Screening 03/20/2024 COVID-19 VACCINE (5 - 2024-2 6 season) 2024 12/30/2021, 10/01/2021, 02/05/2021, Additional history exists Influenza Vaccine (#1) 2024 Respiratory Syncytial Virus (RSV) Adult or (1 - 1-dose 75+ series) 2025 Insurance [facility] MEDICARE PPO Advance Directives For more information, please contact: [phone] * Full Code (Latest Code Status on File) Date Activated Date Inactivated Comments 11/27/2022 5:03 PM 12/04/2022 12:30 PM Care Teams Hse Manager Relationship Specialty Start Date End Date Yonatan Nevarez MD [address] [place] [address] PCP - General Family Medicine 11/27/22
== END 2024-12-17 23:59 | disposition home or self-care (01) ==
LOC: LAB.DROPOF 11:02
PROVIDERS: PCP Family Medicine; Visit Provider Family Medicine
DX: R19.7 Diarrhea, unspecified (principal)
CPT/HCPCS: 87045